=== PATIENT | female | born 1970 | race Caucasian/White ===

== ENCOUNTER 2024-03-08 00:01 | Emergency (ER) | payer MEDICAID, SELFPAY ==
[2024-03-08 00:18] VITALS: BP 107/61; PULSE 76; RESP 20; TEMP 36.4; O2SAT 100; BMI 18.6
--- NOTE | 2024-03-08 00:19 | ED_ITS ---
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 She admits to drinking some beer tonight. She denies any chest pain abdominal pain shortness of breath fever chills nausea vomiting trauma. Related Data Allergies Allergy/AdvReac Type Severity Reaction Status Date / Time No Known Allergies Allergy Verified 03/08/24 00:21 [facility] Disclaimer: The information contained in this section may have been updated after the patient was seen, as this information can be updated by other users. Social History Smoking Status: Current every day smoker alcohol intake: current current occupational status: other Travel in the last 8 weeks: None ROS Obtained: Yes All systems reviewed & no additional complaints except as documented Physical Exam General General appearance: alert and in no apparent distress Head Head exam: atraumatic and normocephalic Eye Eye exam: Present normal appearance, PERRL and EOMI ENT ENT exam: Present normal oropharynx and normal external ear exam Neck Neck exam: Present normal inspection and full ROM Chest Chest inspection: Present normal inspection and symmetric chest wall rise; Absent tenderness Respiratory Respiratory exam: Present normal lung sounds bilaterally; Absent respiratory distress Cardiovascular Cardiovascular exam: Present regular rate and normal rhythm Abdominal Exam Abdominal exam: Present soft; Absent distention, tenderness or guarding Extremities Exam Extremities exam: Present normal inspection; Absent edema or joint swelling Back Exam Back exam: Present normal inspection; Absent tenderness Neurological Exam Neurological exam: Present alert, oriented X3 and other (Speech mildly slurred); Absent motor sensory deficit Psychiatric Psychiatric exam: Present normal affect and normal mood Skin Skin exam: Present warm, dry and normal color Lymphatic Lymphatic Findings: no adenopathy Medical Decision Making Medical Records Medical records reviewed: Yes I reviewed the patient's medical records. Screening: Per USPSTF and CDC recommendations, given the prevalence of disease in our region, it is our hospital?s policy to screen for HIV and viral Hepatitis for all patients aged 18 and over and those with ongoing risk factors. Osei Inquiry Pt receiving controlled substance: No Osei was queried for this patient: No Vital Signs: 03/08/24 00:18 03/08/24 00:24 Temperature 97.6 F 97.9 F Temperature Source Oral Oral Pulse Rate 74 Pulse Rate [Left Brachial] 76 Respiratory Rate 20 14 Blood Pressure 107/61 L Blood Pressure [Right Arm] 107/61 L Blood Pressure Mean [Right Arm] 76 Blood Pressure Source Automatic Cuff Blood Pressure Source [Right Arm] Automatic Cuff Blood Pressure Position Sitting Blood Pressure Position [Right Arm] Sitting 02 Sat by Pulse Oximetry 100 Oxygen Delivery Method Room Air Room Air Lab Data Lab results reviewed: Yes I reviewed the patient's lab results. Medical Decision Narrative: 53-year-old female without significant past medical history presents in police custody for medical clearance. History was obtained via interactive discussion with patient, police. On arrival, patient is [afebrile, hemodynamically stable, satting appropriately, alert, oriented x4, GCS 15], moving all extremities spontaneously. Full physical exam performed and significant for no significant physical exam abnormalities, mild slurring of speech. Differential includes but is not limited to intoxication, withdrawal, trauma. No evidence of emergent pathology at this time. Labs and imaging were considered but deemed necessary given history and exam. Patient discharged in the stable condition in police custody.. Procedures Risk/Benefits of Procedure(s) Were Explained: Yes Critical Care Critical Care Time Critical Care Time: No
--- NOTE | 2024-03-08 00:21 | PC.NURSE ---
skin pink cool and dry Resp full and easy Speech clear slightly slurred and appropriate
[2024-03-08 00:24] VITALS: BP 107/61; PULSE 74; RESP 14; TEMP 36.6; O2SAT 98
== END 2024-03-08 00:26 ==
PROVIDERS: Emergency Provider Emergency Medicine
DX: Z00.00 Encounter for general adult medical examination without abnormal findings (principal); R47.81 Slurred speech; F10.90 Alcohol use, unspecified, uncomplicated
CPT/HCPCS: 99282